=== PATIENT | female | born 1960 | race African-American/Black ===

== ENCOUNTER 2020-09-29 13:42 | Outpatient (CLI) | payer OTHER, SELFPAY ==
--- NOTE | ~2020-09-29 | MM_ITS ---
EXAMINATION: MM screening salena BI w miguelina HISTORY: Screening mammogram TECHNIQUE: Craniocaudal and mediolateral oblique 3-D tomosynthesis images were obtained and synthetic 2-D images were generated. CAD analysis was submitted and interpreted. COMPARISON: 09/25/2019, 08/21/2018, 08/09/2017 bilateral digital screening mammogram examinations BREAST PARENCHYMAL COMPOSITION: There are scattered areas of fibroglandular density. FINDINGS: There is no evidence of suspicious mass, calcification, or architectural distortion to sugg est malignancy in either breast. There has been no suspicious interval change. IMPRESSION: 1. No mammographic evidence of malignancy. 2. Recommend routine screening mammography in one year. BI-RADS Category 1: Negative Reviewed, dictated and finalized at location A. RVISOR ABATTOIR
== END 2020-09-29 13:43 | disposition home or self-care (01) ==
LOC: ANHIMG 13:45
PROVIDERS: PCP Internal Medicine; Visit Provider Internal Medicine
DX: Z12.31 Encounter for screening mammogram for malignant neoplasm of breast (principal)
CPT/HCPCS: 77063; 77067

== ENCOUNTER → 2021-06-23 09:59 | Outpatient (CLI) | payer OTHER, SELFPAY ==
--- NOTE | ~2021-06-23 | US_ITS ---
EXAMINATION: US pelvic complete w TV DATE: 06/23/2021 11:28 INDICATION: Pelvic pain. TECHNIQUE: Multiple transabdominal and transvaginal sonographic images of the pelvis were obtained. COMPARISON: None. FINDINGS: TRANSABDOMINAL ULTRASOUND: The uterus measures 4.4 x 2.2 x 3.2 cm. There is no free fluid in the pelvis. TRANSVAGINAL ULTRASOUND: The endometrial complex measures 4 mm in thickness. There are 1.5 cm and 1.0 cm hypoechoic intramural fibroids. The ovaries are not visualized. IMPRESSION: 1. Small uterine fibroids. 2. Ovaries not visualized. Reviewed, dictated and finalized at location A.
--- NOTE | ~2021-06-23 | US_ITS ---
EXAMINATION: US abdomen complete EXAM DATE: 06/23/2021 10:39 INDICATION: Unspecified abdominal pain. TECHNIQUE: Multiple grayscale and Doppler images of the complete abdomen were obtained (by a technolo gist who performed the scan) and subsequently reviewed. Comparison is made to prior examination from 10/02/2019. FINDINGS: Scanning was performed in area annotated umbilical area of pain both at rest and during Va lsalva. This demonstrated no abdominal wall defect and unremarkable subcutaneous fat. The abdominal aorta is normal in caliber. Visualized portion IVC is patent. The pancreatic head a nd body are normal in appearance. The pancreatic tail is not visualized. The liver has normal echogenicity and contour. There is a liver cyst measuring 1.5 cm. There is a 5 mm hyperechoic left liver lobe lesion unchanged, benign. Similar sized one in the right liver lobe me asuring 6 mm, also unchanged, benign. There is no evidence of intrahepatic biliary duct dilation. Po rtal venous flow was seen in the hepatopedal, normal direction and has normal Doppler waveform. Common bile duct measures 4 mm, which is normal. The gallbladder wall is normal in thickness, with ex pected amount of distention. No sonographic evidence of pericholecystic fluid. There is a 4 mm gall bladder polyp unchanged consistent with benign histology. No cholelithiasis. Technologist performing exam reports patient did not demonstrate sonographic Logan's sign. Please note that this sign is l ess reliable in patients who have received pain medication. Right kidney: There is normal contour and echogenicity. It measures 7.4 x 3.9 x 3.6 centimeters. T here are no focal renal lesions identified. There is no hydronephrosis. Left kidney: There is normal contour and echogenicity. It measures 8.4 x 4.7 x 3.8 centimeters. Th ere are no focal renal lesions identified. There is no hydronephrosis. The spleen measures 8.3 centimeters and is morphologically normal. IMPRESSION: 1. Two subcentimeter benign liver lesions unchanged. 2. Gallbladder polyp unchanged. Reviewed, dictated and finalized at location A.
== END ==
PROVIDERS: PCP Internal Medicine
DX: R10.9 Unspecified abdominal pain (principal); D25.9 Leiomyoma of uterus, unspecified; K82.4 Cholesterolosis of gallbladder
CPT/HCPCS: 76700; 76830; 76856

== ENCOUNTER 2021-11-15 14:55 | Outpatient (CLI) | payer OTHER, SELFPAY ==
--- NOTE | ~2021-11-15 | MM_ITS ---
EXAMINATION: MM screening salena BI w miguelina HISTORY: Screening TECHNIQUE: Craniocaudal and mediolateral oblique 3-D tomosynthesis images were obtained and synthetic 2-D images were generated. CAD analysis was submitted and interpreted. COMPARISON: Comparison to multiple prior studies sequentially, with oldest reviewed study dated 06/08. BREAST PARENCHYMAL COMPOSITION: The breasts are heterogeneously dense, which may obscure small masses . FINDINGS: There is no evidence of suspicious mass, calcification, or architectural distortion to sugg est malignancy in either breast. There has been no suspicious interval change. IMPRESSION: 1. No mammographic evidence of malignancy. 2. Recommend routine screening mammography in one year. BI-RADS Category 1: Negative Reviewed, dictated and finalized at location A. IVING MANAGER
== END 2021-11-15 14:56 | disposition home or self-care (01) ==
LOC: ANHIMG 14:57
PROVIDERS: PCP Internal Medicine; Visit Provider Internal Medicine
DX: Z12.31 Encounter for screening mammogram for malignant neoplasm of breast (principal)
CPT/HCPCS: 77063; 77067

== ENCOUNTER → 2022-05-18 09:17 | Outpatient (CLI) | payer OTHER, SELFPAY ==
--- NOTE | ~2022-05-18 | DEXA_ITS ---
Bone Density Report Name: OSMAN GREGORY Age: 62 Sex: Female Ethnicity: Black Date of : 1960 Indication: postmenopausal; screening for osteoporosis; asthma or emphysema; Referring Provider: VIRGIL, SAMUEL Moreno Study: Bone densitometry was performed. Exam Date: May 18, 2022 Accession number: [id number] Bone Density: Region BMD T-score Z-score Classification AP Spine (L1-L4) 1.053 0.1 0.7 Normal Femoral Neck (Left) 0.688 -1.4 -0.8 Osteopenia Total Hip (Left) 0.865 -0.6 -0.3 Normal Femoral Neck (Right) 0.686 -1.5 -0.8 Osteopenia Total Hip (Right) 0.841 -0.8 -0.4 Normal Total Hip Mean 0.853 -0.7 -0.4 Normal World Health Organization criteria for BMD impression classify patients as: Normal (T-score at or above -1.0), Osteopenia (T-score between -1.0 and -2.5), or Osteoporosis (T-score at or below -2.5). 10-year Fracture Risk(1): Major Osteoporotic Fracture 3.3% Hip Fracture 0.3% Reported Risk Factors: [place] (Black), Neck BMD=0.686, BMI=31.9 (1) FRAX(R) Version 3.08. Fracture probability calculated for an untreated patient. Fracture probability may be lower if the patient has received treatment. Clinical Information Provided by Patient: Has used the following medications: Vitamin D, MTV Has the following medical conditions: Asthma or Emphysema Patient maximum height was 62.5 Menopause Age: 52 No regular weight bearing exercise Does not regularly consume dairy products Drinks caffeinated beverages Onset of menses at age 11 Number of children 1 Impression: The patient has low bone mass, based on the Right Femoral Neck T-score. The patient has an estimated ten-year risk of hip fracture of 0.3% and an estimated ten-year risk of major fracture of 3.3%, based on the WHO FRAX algorithm. Discussion: BONE DENSITY IS LOW AT ONE OR MORE SKELETAL SITES. This patient's lowest T-score is low at one or more skeletal sites. It meets the World Health Organization's (WHO) criteria for ?low bone mass? (T-score between -1.0 and -2.5). The patient's 10-year risk of fracture as calculated by FRAX is less than the threshold where pharmacological therapy is recommended by the National Osteoporosis Foundation (NOF). However, all treatment decisions require clinical judgment and consideration of individual patient factors, including patient preferences, comorbidities, previous drug use, risk factors not captured in the FRAX model (e.g., frailty, falls, vitamin D deficiency, increased bone turnover, interval significant decline in bone density) and possible under or overestimation of fracture risk by FRAX. The patient should follow a healthful lifestyle (good nutrition with adequate calcium and vitamin D, and appropriate weight-bearing exercise). Follow-Up: Consider repeating this study in 2 to 3 years to heather
== END ==
PROVIDERS: PCP Internal Medicine; Visit Provider Internal Medicine
DX: Z78.0 Asymptomatic menopausal state (principal); M85.852 Other specified disorders of bone density and structure, left thigh; M85.851 Other specified disorders of bone density and structure, right thigh
CPT/HCPCS: 77080

== ENCOUNTER 2023-03-21 13:45 | Outpatient (CLI) | payer OTHER, SELFPAY ==
--- NOTE | ~2023-03-21 | MM_ITS ---
EXAMINATION: MM screening salena BI w miguelina HISTORY: Screening mammogram TECHNIQUE: Craniocaudal and mediolateral oblique 3-D tomosynthesis images were obtained and synthetic 2-D images were generated. CAD analysis was submitted and interpreted. COMPARISON: 11/15/2021, 09/29/2020, 09/25/2019 bilateral screening mammogram examinations BREAST PARENCHYMAL COMPOSITION: There are scattered areas of fibroglandular density. FINDINGS: There is no evidence of suspicious mass, calcification, or architectural distortion to sugg est malignancy in either breast. There has been no suspicious interval change. IMPRESSION: 1. No mammographic evidence of malignancy. 2. Recommend routine screening mammography in one year. BI-RADS Category 1: Negative Reviewed, dictated and finalized at location A.
== END 2023-03-21 13:46 | disposition home or self-care (01) ==
LOC: ANHIMG 13:49
PROVIDERS: PCP Internal Medicine; Visit Provider Internal Medicine
DX: Z12.31 Encounter for screening mammogram for malignant neoplasm of breast (principal)
CPT/HCPCS: 77063; 77067

== ENCOUNTER 2023-05-17 08:52 | Outpatient (CLI) | payer OTHER, SELFPAY ==
--- NOTE | 2023-05-17 | ECG_ITS ---
Measurements Intervals Walker Rate: 62 P: 52 CO: 161 QRS: 2 QRSD: 68 T: 15 QT: 380 QTc: 388 Interpretive Statements SINUS RHYTHM POSSIBLE LEFT ATRIAL ENLARGEMENT BORDERLINE T WAVE ABNORMALITY- INFERIOR LEADS BORDERLINE ECG NO PREVIOUS ECG AVAILABLE FOR COMPARISON Electronically Signed On 05-17-2023 9:18:42 CDT by Edenilson Cervantes D.O.
== END 2023-05-17 08:53 | disposition home or self-care (01) ==
PROVIDERS: PCP Internal Medicine; Visit Provider Otolaryngology
DX: I10 Essential (primary) hypertension (principal); Z01.818 Encounter for other preprocedural examination; R94.31 Abnormal electrocardiogram [ECG] [EKG]
CPT/HCPCS: 93005

== ENCOUNTER 2023-11-20 09:46 | Outpatient (CLI) | payer OTHER, SELFPAY ==
--- NOTE | ~2023-11-20 | US_ITS ---
EXAMINATION: US soft tissue head and neck DATE: 11/20/2023 10:24 INDICATION: Neck pain. Thyroid changes. Neck spasms. TECHNIQUE: Multiple ultrasound images of the thyroid were obtained. COMPARISON: None. FINDINGS: The right thyroid lobe measures 4.8 x 3.1 x 1.8 cm. The left thyroid lobe measures 3.8 x 2.4 x 1.1 c m. In the right thyroid lobe, there is 3.6 cm solid, hypoechoic, wider than tall nodule with ill-def ined margin without echogenic foci (TI-RADS TR4). In the left thyroid lobe, there is a 1.8 cm solid, isoechoic, wider than tall nodule with ill-defined margin without echogenic foci (TR3). There are no pathologically enlarged lymph nodes. IMPRESSION: 1. Thyroid nodules. Ultrasound-guided fine-needle aspiration of the 3.6 cm right thyroid nodule is re commended. Reviewed, dictated and finalized at location A. IMPRESSION: 1. Thyroid nodules. Ultrasound-guided fine-needle aspiration of the 3.6 cm righ t thyroid nodule is recommended.
== END 2023-11-20 09:47 ==
LOC: MICIMG 09:48
PROVIDERS: PCP Nurse Practitioner Adult Health; Visit Provider Nurse Practitioner Adult Health
DX: M54.2 Cervicalgia (principal); E04.2 Nontoxic multinodular goiter
CPT/HCPCS: 76536

== ENCOUNTER 2023-11-20 09:49 | Outpatient (CLI) | payer OTHER, SELFPAY ==
--- NOTE | ~2023-11-20 | US_ITS ---
Renal-Bladder ultrasound Clinical History: Chronic kidney disease Technique: Real-time sonographic imaging of the kidneys and urinary bladder was performed. Findings: The right kidney measures 8.1 cm in length and the left kidney measures 9.0 cm. There is no hydronephrosis or renal calculus identified. Renal cortical echogenicity is within normal limits. No renal mass lesion is identified. The urinary bladder is moderately distended at the time of this exam. No intraluminal echoes are iden tified. No abnormal wall thickening is seen. Impression: Unremarkable ultrasound of the kidneys and urinary bladder. Reviewed, dictated and finalized at location M. Impression: Unremarkable ultrasound of the kidneys and urinary bladder.
== END 2023-11-20 09:50 ==
LOC: MICIMG 09:51
PROVIDERS: PCP Specialist; Visit Provider Specialist
DX: N18.31 Chronic kidney disease, stage 3a (principal)
CPT/HCPCS: 76770

== ENCOUNTER 2023-12-17 12:37 | Outpatient (CLI) | payer OTHER, SELFPAY ==
--- NOTE | ~2023-12-17 | US_ITS ---
. EXAMINATION: US FNA w image guidance DATE: 12/17/2023 13:26 INDICATION: Nontoxic single thyroid nodule. TECHNIQUE: The procedure and its benefits and risks were discussed with the patient. Risks specifically discusse d included bleeding. The patient verbalized understanding of the risks and agreed to proceed. The nec k was prepped and draped in the usual sterile manner. 1% lidocaine was used for local anesthesia. 7 passes were made with a 25G needle into the lesion under ultrasound guidance. There were no immedia te complications. FINDINGS: Grayscale ultrasound images demonstrate needles advanced into a 3.6 cm right thyroid nodule for biops y. IMPRESSION: 1. Ultrasound-guided fine needle aspiration of a right thyroid nodule. Reviewed, dictated and finalized at location A.
== END 2023-12-17 12:38 | disposition home or self-care (01) ==
PROVIDERS: PCP Internal Medicine; Visit Provider Internal Medicine
DX: E04.1 Nontoxic single thyroid nodule (principal)
CPT/HCPCS: 10005; 88172; 88173; 88305

== ENCOUNTER 2024-07-18 11:07 | Outpatient (CLI) | payer OTHER, SELFPAY ==
--- NOTE | ~2024-07-18 | CT_ITS ---
EXAMINATION: CT sinus wo con DATE: 07/18/2024 11:21 INDICATION: Chronic sinusitis. TECHNIQUE: Computed tomography (CT) of the paranasal sinuses was performed without intravenous contra st. Iterative reconstruction technique was employed. The dose-length product was 278.24 mGy-cm. COMPARISON: CT 08/23/2015 FINDINGS: The frontal sinuses are clear. There is mild mucosal thickening in left ethmoid sinus. The sphenoid and right maxillary sinuses are clear. There is mild mucosal thickening in left maxillary si nus. The nasal septum is at the midline. The ostiomeatal units are patent. IMPRESSION: 1. Mild mucosal thickening in the paranasal sinuses. Reviewed, dictated and finalized at location A. IVING SUPERVISOR
== END 2024-07-18 11:08 | disposition home or self-care (01) ==
LOC: MICIMG 11:08
PROVIDERS: PCP Internal Medicine; Visit Provider Otolaryngology
DX: J32.9 Chronic sinusitis, unspecified (principal)
CPT/HCPCS: 70486

== ENCOUNTER 2024-08-09 10:58 | Outpatient (CLI) | payer OTHER, SELFPAY ==
--- NOTE | ~2024-08-09 | MM_ITS ---
EXAMINATION: MM screening salena BI w miguelina HISTORY: Screening TECHNIQUE: Craniocaudal and mediolateral oblique 3-D tomosynthesis images were obtained and synthetic 2-D images were generated. CAD analysis was submitted and interpreted. COMPARISON: Comparison to multiple prior studies sequentially, with oldest reviewed study dated 07/13. BREAST PARENCHYMAL COMPOSITION: Not dense: There are scattered areas of fibroglandular density. FINDINGS: There is no evidence of suspicious mass, calcification, or architectural distortion to sugg est malignancy in either breast. There has been no suspicious interval change. IMPRESSION: 1. No mammographic evidence of malignancy. 2. Recommend routine screening mammography in one year. BI-RADS Category 1: Negative Reviewed, dictated and finalized at location B. ER HELPER
== END 2024-08-09 10:59 | disposition home or self-care (01) ==
LOC: MICIMG 11:01
PROVIDERS: PCP Internal Medicine; Visit Provider Internal Medicine
DX: Z12.31 Encounter for screening mammogram for malignant neoplasm of breast (principal)
CPT/HCPCS: 77063; 77067

== ENCOUNTER 2025-03-15 08:35 | Emergency (ER) | payer OTHER, SELFPAY ==
[2025-03-15 08:44] VITALS: BP 157/71; PULSE 96; RESP 16; TEMP 36.9; O2SAT 100
--- NOTE | 2025-03-15 08:50 | ED.SKABFB ---
HPI - Skin/Abscess/Foreign Bdy General Chief complaint: Skin/Abscess/Foreign Body Stated complaint: rash around eyes Time Seen by Provider: 03/15/25 08:50 Source: patient Mode of arrival: ambulatory Limitations: no limitations History of Present Illness HPI narrative: 64-year-old female reports with complaint of itchy rash for the past several days. Becoming progressively worse. Started to right upper eyelid after pulling weeds. Has spread to left side of forehead, left breast, bilateral forearms. Using bxis-aog-glutyhn hydrocortisone cream. All Systems reviewed and negative except as noted above. Related Data Home Medications ?Medication ?Instructions ?Recorded ?Confirmed ?Last Taken ?Type atorvastatin 40 mg tablet mg 03/15/25 Unknown History dapagliflozin propanediol 10 mg mg 03/15/25 Unknown History tablet (Farxiga) ergocalciferol (vitamin D2) 1,250 03/15/25 Unknown History mcg (50,000 unit) capsule losartan 50 mg tablet mg 03/15/25 Unknown History metoprolol succinate 50 mg mg PO 03/15/25 Unknown History tablet,extended release 24 hr Allergies Allergy/AdvReac Type Severity Reaction Status Date / Time Penicillins Allergy Severe NAUSEA AND Verified 03/15/25 08:59 VOMITING esomeprazole Allergy Intermediate MOUTH AND Verified 03/15/25 08:59 THROAT SWELLING latex Allergy Mild SENSITIVE Verified 03/15/25 08:59 SERTRALINE HCL Allergy Severe CONFUSION Uncoded 03/15/25 08:59 Dust Allergy Intermediate CHEST Uncoded 03/15/25 08:59 CONSTRICTION AEROSELS Allergy Mild irritation Uncoded 03/15/25 08:59 CIGARETTE SMOKE Allergy Mild irritation Uncoded 03/15/25 08:59 CODEINE PHOS Allergy Mild CONFUSION Uncoded 03/15/25 08:59 BACITRACIN OINT Allergy Unknown Rash Uncoded 03/15/25 08:59 Review of Systems Review of Systems: CONSTITUTIONAL: Denies fever, chills, or sweats. EYES: Denies visual changes, redness, or discharge. ENT: Denies rhinorrhea, congestion, sore throat, or otalgia. CARDIOVASCULAR: Denies chest pain, palpitations, or edema. RESPIRATORY: Denies cough or dyspnea. GASTROINTESTINAL: Denies abdominal pain, nausea, vomiting, or diarrhea. GENITOURINARY: Denies dysuria or hematuria. SKIN: reports rash and itching. MUSCULOSKELETAL: Denies back pain, joint pain, or myalgia. NEUROLOGIC: Denies headache, numbness, or weakness. PSYCHIATRIC: Denies anxiety or depression. All other systems reviewed are negative, except as documented in HPI. PMFSH Comments At time of signature, agree with nursing past medical, surgical, social and family history. There is no relevant family history pertinent to the presenting complaint. Exam Narrative: GENERAL: This is a well-nourished, well-developed patient, in no apparent distress. HEAD: normocephalic, atraumatic. EYES: PERRL. Sclera clear/white. Vision is grossly intact. EARS: External ears normal NOSE: External nose normal NECK: Neck supple, non-tender without lymphadenopathy, masses or thyromegaly. CARDIOVASCULAR: Regular rate and rhythm without murmurs, gallops, or rubs. RESPIRATORY: Clear to auscultation. Breath sounds equal bilaterally. No wheezes, rales, or rhonchi. SKIN: warm, Dry, intact, good texture and turgor. erythematous vesicular rash to right upper eyelid, left side forehead, right forearm and left breast NEURO: awake, alert, and oriented to person, place and time. There were no obvious focal neurologic abnormalities. EXTREMITIES: No joint tenderness, effusion, or edema noted. Course Course Level of Care: Express Care Visit Vital Signs Vital signs: Vital Signs Temperature 36.9 C 03/15/25 08:44 Pulse Rate 96 03/15/25 08:44 Respiratory Rate 16 03/15/25 08:44 Blood Pressure 157/71 H 03/15/25 08:44 Pulse Oximetry 100 03/15/25 08:44 Oxygen Delivery Room Air 03/15/25 08:44 Temperature 36.9 C 03/15/25 08:44 Pulse Rate 96 03/15/25 08:44 Respiratory Rate 16 03/15/25 08:44 Blood Pressure 157/71 H 03/15/25 08:44 Pulse Oximetry 100 03/15/25 08:44 Oxygen Delivery Room Air 03/15/25 08:44 reviewed MDM - Skin/Abscess/Foreign Bdy MDM Narrative Medical decision making narrative: exam findings and recent pulling weeds concerning for poison tamiko exposure. Will treat with oral prednisone, triamcinolone. Recommended daily antihistamine. Patient is well-appearing, nontoxic. Discharge Plan Discharge Clinical Impression: Dermatitis due to plants, including poison tamiko, sumac, and oak Patient Disposition: Home Condition: Stable Instructions: Poison Tamiko (ED) Additional Instructions: take prednisone as prescribed. Apply triamcinolone sparingly to affected areas, avoid applying to face. Take a daily antihistamine such as Claritin or Zyrtec. Follow-up with your primary care physician as needed. Patient Language: Spanish Prescriptions: New prednisone 10 mg tablet See Rx Instructions .ROUTE .COMPLEX Qty: 42 0RF Rx Instructions: Take 6 tablets for 2 days Take 5 tablets for 2 days Take 4 tablets for 2 days Take 3 tablets for 2 days Take 2 tablets for 2 days Take 1 tablet for 2 days triamcinolone acetonide 0.1 % cream 1 applic topical BID Qty: 30 0RF No Action losartan 50 mg tablet atorvastatin 40 mg tablet metoprolol succinate 50 mg tablet extended release 24 hr PO ergocalciferol (vitamin D2) 1,250 mcg (50,000 unit) capsule dapagliflozin propanediol [Farxiga] 10 mg tablet Follow-up/Referrals: Lobito,Joel Moreno MD [Primary Care Provider] - Time of Disposition: 09:02
== END 2025-03-15 09:12 | disposition home or self-care (01) ==
PROVIDERS: Emergency Provider Nurse Practitioner Family; PCP Internal Medicine
DX: L23.7 Allergic contact dermatitis due to plants, except food (principal); I10 Essential (primary) hypertension; E78.00 Pure hypercholesterolemia, unspecified; E11.9 Type 2 diabetes mellitus without complications
CPT/HCPCS: 99213; G0463

== ENCOUNTER 2025-03-31 08:16 | Emergency (ER) | payer OTHER, SELFPAY ==
--- NOTE | 2025-03-31 08:30 | ED_ITS ---
HPI - Skin/Abscess/Foreign Bdy General Chief complaint: Skin/Abscess/Foreign Body Stated complaint: Rash Spreading Source: patient Mode of arrival: ambulatory Limitations: no limitations History of Present Illness HPI narrative: 65 y/o female presented for c/o spreading poison tamiko rash' to left abdomen. Pt was seen 03/15 in clinic for the same, plus additional rash lesions to the face and arms which she says have cleared. Pt completed 12 day course of prednisone 3 days ago. Pt still with bumps and itching on abdomen and under breasts, which she said feels like it is spreading to the left back and right abdomen. Denies rash in these areas. Elevated bp on arrival, has not yet taken meds. Denies chest pain, palpitations, leg swelling. Endorses a headache this morning for which she took ibuprofen. Related Data Home Medications ?Medication ?Instructions ?Recorded ?Confirmed ?Last Taken ?Type atorvastatin 40 mg tablet mg 03/15/25 Unknown History dapagliflozin propanediol 10 mg mg 03/15/25 Unknown History tablet (Farxiga) ergocalciferol (vitamin D2) 1,250 03/15/25 Unknown History mcg (50,000 unit) capsule losartan 50 mg tablet mg 03/15/25 Unknown History metoprolol succinate 50 mg mg PO 03/15/25 Unknown History tablet,extended release 24 hr Allergies Allergy/AdvReac Type Severity Reaction Status Date / Time Penicillins Allergy Severe NAUSEA AND Verified 03/15/25 08:59 VOMITING esomeprazole Allergy Intermediate MOUTH AND Verified 03/15/25 08:59 THROAT SWELLING latex Allergy Mild SENSITIVE Verified 03/15/25 08:59 SERTRALINE HCL Allergy Severe CONFUSION Uncoded 03/15/25 08:59 Dust Allergy Intermediate CHEST Uncoded 03/15/25 08:59 CONSTRICTION AEROSELS Allergy Mild irritation Uncoded 03/15/25 08:59 CIGARETTE SMOKE Allergy Mild irritation Uncoded 03/15/25 08:59 CODEINE PHOS Allergy Mild CONFUSION Uncoded 03/15/25 08:59 BACITRACIN OINT Allergy Unknown Rash Uncoded 03/15/25 08:59 Review of Systems Review of Systems: CONSTITUTIONAL: Denies body aches, fever, chills, or sweats. EYES: Denies visual changes, redness, or discharge. ENT: Denies rhinorrhea, congestion CARDIOVASCULAR: Denies chest pain, palpitations, or edema. RESPIRATORY: Denies cough or dyspnea. GASTROINTESTINAL: Denies abdominal pain, nausea, vomiting, or diarrhea. SKIN: reports rash to left abdomen MUSCULOSKELETAL: Denies back pain, joint pain, or myalgia. NEUROLOGIC: Denies headache, numbness, tingling, or weakness. [facility] Past Medical History Medical History (Updated 03/31/25 @ 08:57 by Juana Christy APRN) HTN (hypertension) Comments At time of signature, I have reviewed and agree with nursing past medical, surgical, social and family history unless otherwise noted. Please see nursing chart for further information. There is no relevant family history pertinent to the presenting complaint Exam Narrative: GENERAL: Well-appearing HEAD: Normocephalic, atraumatic. EYES: conjunctivae clear, and EOMI. ENT: Mucous membranes moist. Oropharynx without edema, erythema or lesions. NECK: Supple. No lymphadenopathy CHEST: Clear to auscultation. HEART: Regular rate and rhythm. SKIN: Warm, dry. Left mid abdomen with small area of pinpoint vesicles on erythematous base, nontender no drainage or purulence. Nontender dermatome. NEURO: Alert and oriented x3. Course Course Emergency Course: Patient is aware of diagnosis, understands and agrees to treatment plan. Anticipatory guidance given. Patient agrees to follow-up as directed and is aware of reasons to seek care at the emergency department. Portions of this record may have been created with voice recognition software Level of Care: Express Care Visit Vital Signs Vital signs: Reviewed MDM - Skin/Abscess/Foreign Bdy MDM Narrative Medical decision making narrative: Discussed physical exam findings, Left mid abdomen with small area of vesicles on erythematous base, nontender to site or dermatome. Shared decision making Pt will resume Home supply of Zyrtec and Pepcid, as she just completed a 12 day taper of steroids 3 days ago. Advised supportive measures and signs/symptoms to go to the ER. Pt is appropriate for outpt treatment and f/u. Pt is aware of elevated bp, and planned to recheck prior to dc. Pt declined rechecking of BP. Instructed patient to go to nearest ER immediately for any worsening symptoms Differential Diagnosis Differential diagnosis: Likely abscess of skin or subcutaneous tissue, viral exanthem, dermatophytosis, urticaria, herpes zoster, cellulitis, eczema, insect bites, impetigo and contact dermatitis Discharge Plan Discharge Clinical Impression: Contact dermatitis Patient Disposition: Home Condition: Stable Instructions: Antibiotic Form, Poison Tamiko (ED) Additional Instructions: Take Zyrtec daily and Pepcid 40mg (home supply). Benadryl cream, Tamiko Dry or calamine as needed for itching Cool compresses to the sites of itching, avoid hot water and hot temperatures. Avoid scratching to reduce the risk of infection Follow up with your primary care provider as needed in 1 week Go to the ER for worsening symptoms or concerns (lip, tongue, throat swe lling/itching, trouble breathing etc) Patient Language: German Prescriptions: No Action losartan 50 mg tablet atorvastatin 40 mg tablet metoprolol succinate 50 mg tablet extended release 24 hr PO ergocalciferol (vitamin D2) 1,250 mcg (50,000 unit) capsule dapagliflozin propanediol [Farxiga] 10 mg tablet prednisone 10 mg tablet See Rx Instructions .ROUTE .COMPLEX Qty: 42 0RF Rx Instructions: Take 6 tablets for 2 days Take 5 tablets for 2 days Take 4 tablets for 2 days Take 3 tablets for 2 days Take 2 tablets for 2 days Take 1 tablet for 2 days triamcinolone acetonide 0.1 % cream 1 applic topical BID Qty: 30 0RF Follow-up/Referrals: Lobito,Joel Moreno MD [Primary Care Provider] - Time of Disposition: 08:51
[2025-03-31 08:32] VITALS: BP 172/82; PULSE 74; RESP 14; TEMP 36.9; O2SAT 100
--- NOTE | 2025-03-31 08:55 | PC.NURSE ---
pt noted to have elevated blood pressure, state has not been taking medications as rx states. offered to recheck blood pressure prior to discharge, pt declined.
== END 2025-03-31 08:51 | disposition home or self-care (01) ==
PROVIDERS: Emergency Provider Nurse Practitioner Family; PCP Internal Medicine
DX: L25.9 Unspecified contact dermatitis, unspecified cause (principal); I10 Essential (primary) hypertension
CPT/HCPCS: 99211; G0463

== ENCOUNTER 2025-05-05 09:56 | Outpatient (CLI) | payer OTHER, SELFPAY ==
--- NOTE | ~2025-05-05 | DEXA_ITS ---
Bone Density Report Name: OSMAN BURKETT Age: 65 Sex: Female Ethnicity: Black Date of : 1960 Indication: postmenopausal; screening for osteoporosis; asthma or emphysema; Referring Provider: VIRGIL, SAMUEL Moreno Study: Bone densitometry was performed. Exam Date: May 05, 2025 Accession number: [id number] Bone Density: Region BMD T-score Z-score Classification AP Spine(L1-L4) 1.067 0.2 1.0 Normal Femoral Neck (Left) 0.694 -1.4 -0.6 Osteopenia Total Hip (Left) 0.840 -0.8 -0.3 Normal Femoral Neck (Right) 0.674 -1.6 -0.8 Osteopenia Total Hip (Right) 0.824 -1.0 -0.4 Normal Total Hip Mean 0.832 -0.9 -0.4 Normal World Health Organization criteria for BMD impression classify patients as: Normal (T-score at or above -1.0), Osteopenia (T-score between -1.0 and -2.5), or Osteoporosis (T-score at or below -2.5). 10-year Fracture Risk(1): Major Osteoporotic Fracture 3.7% Hip Fracture 0.3% Reported Risk Factors: [place] (Black), Neck BMD=0.674, BMI=31.0 (1) FRAX(R) Version 3.08. Fracture probability calculated for an untreated patient. Fracture probability may be lower if the patient has received treatment. Previous Exams: -- Region Exam Age BMD T-score BMD Change BMD Change Date g/cm2 vs Baseline vs Previous -- AP Spine (L1-L4) 05/05/2025 65 1.067 0.2 1.3%# 1.3%# 05/18/2022 62 1.053 0.1 Total Hip(Left) 05/05/2025 65 0.840 -0.8 -2.8%# -2.8%# 05/18/2022 62 0.865 -0.6 Total Hip(Right) 05/05/2025 65 0.824 -1.0 -2.0%# -2.0%# 05/18/2022 62 0.841 -0.8 -- *Denotes significance at 95% confidence level, LSC for AP Spine = 0.022 g/cm2, LSC for Total Hip = 0.027 g/cm2 # Denotes dissimilar scan types or analysis methods Clinical Information Provided by Patient: Has used the following medications: Calcium Has the following medical conditions: Asthma or Emphysema Patient maximum height was 62.5 Menopause Age: 52 No regular weight bearing exercise Does not regularly consume dairy products Drinks caffeinated beverages Onset of menses at age 11 Number of children 1 Impression: The patient has low bone mass, based on the Right Femoral Neck T-score. The patient has an estimated ten-year risk of hip fracture of 0.3% and an estimated ten-year risk of major fracture of 3.7%, based on the WHO FRAX algorithm. Unable to evaluate interval change due to the use of different scan modes. Discussion: BONE DENSITY IS LOW AT ONE OR MORE SKELETAL SITES. This patient's lowest T-score is low at one or more skeletal sites. It meets the World Health Organization's (WHO) criteria for ?low bone mass? (T-score between -1.0 and -2.5). The patient's 10-year risk of fracture as calculated by FRAX is less than the threshold where pharmacological therapy is recommended by the National Osteoporosis Foundation (NOF). However, all treatment decisions require clinical judgment and consideration of individual patient factors, including patient preferences, comorbidities, previous drug use, risk factors not captured in the FRAX model (e.g., frailty, falls, vitamin D deficiency, increased bone turnover, interval significant decline in bone density) and possible under or overestimation of fracture risk by FRAX. The patient should follow a healthful lifestyle (good nutrition with adequate calcium and vitamin D, and appropriate weight-bearing exercise). Follow-Up: Consider repeating this study in 2 to 3 years to reassess this patient's status, or sooner if there is some new clinical indication. Reported by: DONNA on 05/05/2025 1:47:00 PM. Reviewed, dictated and finalized at location A.
== END 2025-05-05 09:57 | disposition home or self-care (01) ==
PROVIDERS: PCP Internal Medicine; Visit Provider Internal Medicine
DX: Z78.0 Asymptomatic menopausal state (principal); M85.851 Other specified disorders of bone density and structure, right thigh; M85.852 Other specified disorders of bone density and structure, left thigh
CPT/HCPCS: 77080

== ENCOUNTER 2025-06-16 09:39 | Outpatient (CLI) | payer OTHER, SELFPAY ==
--- OUTSIDE RECORDS SUMMARY | 2024-06-20 07:15 | XMS_ITS ---
Author Organization [facility] Office Address [address] [facility], [facility] [address] [facility] [address] [place] [address] Care Team Providers Care Sand Wheeler Name Role Phone Tomy Grimes Unavailable [phone] Medications Medication SIG (Take, Route, Frequency, Duration) Notes Start Date End Date Status Calcitriol 0.25 MCG 1 capsule Orally maria c ry other day; Duration: 90 days 12/07/2023 09/02/2024 Active Ergocalciferol 1.25 MG (54052 UT) 1 capsule Orally Once a week; Duration: 90 day(s) 12/07/2023 09/01/2024 Active Losartan Potassium 50 MG 1 tablet Orally Once a day; Duration: 90 12/07/2023 Active Social History Sex Assigned At : Social History Observation Description Sex Assigned At Female Encounters Encounter Location Date Provider Diagnosis [place] [facility] [address] [facility] [address] [place] [address] 06/20/2024 Tomy Grimes Chronic kidney disease, stage 3a N18.31 ; Chronic kidney disease, stage 2 (mild) N18.2 ; Anxiety disorder, unspecified F41.9 ; Chronic fatigue, unspecified R53.82 ; Essential (primary) hypertension I10 and Hyperlipidemia, unspecified E78.5 Assessments Encounter Date Diagnosis (ICD Code) Assessment Notes Treatment Notes Treatment Clinical Notes Section Notes 06/20/2024 Chronic kidney disease, stage 3a (ICD-10 - N18.31) 06/20/2024 Chronic kidney disease, stage 2 (mild) (ICD-10 - N18.2) 06/20/2024 Anxiety disorder, unspecified (ICD-10 - F41.9) 06/20/2024 Chronic fatigue, unspecified (ICD-10 - R53.82) 06/20/2024 Essential (primary) hypertension (ICD-10 - I10) 06/20/2024 Hyperlipidemia, unspecified (ICD-10 - E78.5) Plan Of Treatment No Information Progress Notes * OSMAN SMITHDOB: (65 yo F)Acc No.[id number]:06/20/2024 Patient: OSMAN BENJAMIN Provider: Norris CONTRERAS MD, F.A.C.P, F.A.S.N. :1960 A ge:64 Y S ex:Female Date:06/20/2024 Address:[address] [place], [place] [id number] Subjective: * Chief Complaints: Objective: Assessment: * Assessment: 1. C hronic kidney disease, stage 3a - N18.31 (Primary) 2 . C hronic kidney disease, stage 2 (mild) - N18.2 3 . A nxiety disorder, unspecified - F41.9 4 . C hronic fatigue, unspecified - R53.82 5 . E ssential (primary) hypertension - I10 6 . H yperlipidemia, unspecified - E78.5 Plan: * Billing Information: * Visit Code: 99035 Office Visit, Est Pt., Level 4. * Procedure Codes: * Electronic signature of Fletcher Grimes MD on 06/16/2025 at 10:13 AM CDT Sign off status: Pending * Provider: Norris CONTRERAS MD, F.A.C.P, F.A.S.N. Date: 1 Generated for Printing/Faxing/eTransmitting on: 10:13 AM CDT
--- OUTSIDE RECORDS SUMMARY | 2024-10-10 10:00 | XMS_ITS ---
Author Organization [facility] Office Address [address] [place] [address] Care Team Providers Care Group Exercise Instructor Name Role Phone Cornelio Tomy Unavailable [phone] Medications Medication SIG (Take, Route, Frequency, Duration) Notes Start Date End Date Status Losartan Potassium 50 MG 1 tablet Orally Once a day; Duration: 90 12/07/2023 Active Social History Sex Assigned At : Social History Observation Description Sex Assigned At Female Problems Problem Type SNOMED Code ICD Code Onset Dates Problem Status W/U Status Risk Notes Problem Diabetic renal disease (082548745) Type 2 diabetes mellitus with diabetic chronic kidney disease (E11.22) Active confirmed Problem Renal osteodystrophy (35060606) Renal osteodystrophy (N25.0) Active confirmed Problem Secondary hyperparathyroidism of renal origin (75727507) Secondary hyperparathyroidism of renal origin (N25.81) Active confirmed Encounters Encounter Location Date Provider Diagnosis [place] [facility] [address] [facility] [address] [place] [address] 10/10/2024 Tomy Grimes Chronic kidney disea se, stage 3a N18.31 ; Anxiety disorder, unspecified F41.9 ; Chronic fatigue, unspecified R53.82 ; Essential (primary) hypertension I10 ; Hyperlipidemia, unspecified E78.5 ; Chronic kidney disease, stage 2 (mild) N18.2 ; Type 2 diabetes mellitus with diabetic chronic kidney disease E11.22 ; Renal osteodystrophy N25.0 ; Secondary hyperparathyroidism of renal origin N25.81 and Proteinuria, unspecified R80.9 Assessments Encounter Date Diagnosis (ICD Code) Assessment Notes Treatment Notes Treatment Clinical Notes Section Notes 10/10/2024 Chronic kidney disea se, stage 3a (ICD-10 - N18.31) 10/10/2024 Anxiety disorder, unspecified (ICD-10 - F41.9) 10/10/2024 Chronic fatigue, unspecified (ICD-10 - R53.82) 10/10/2024 Essential (primary) hypertension (ICD-10 - I10) 10/10/2024 Hyperlipidemia, unspecified (ICD-10 - E78.5) 10/10/2024 Chronic kidney disea se, stage 2 (mild) (ICD-10 - N18.2) 10/10/2024 Type 2 diabetes mellitus with diabetic chronic kidney disease (ICD-10 - E11.22) 10/10/2024 Renal osteodystrophy (ICD-10 - N25.0) 10/10/2024 Secondary hyperparathyroidism of renal origin (ICD-10 - N25.81) 10/10/2024 Proteinuria, unspecified (ICD-10 - R80.9) Plan Of Treatment No Information Progress Notes * COLTGAYDAYDAYOSMAN CordovaDOB: (65 yo F)Acc No.[id number]:10/10/2024 Progress Notes Patient: Chaparro ALMEIDA OSMAN Provider: Norris CONTRERAS MD, F.A.C.P, F.A.S.N. :1960 A ge:64 Y S ex:Female Date:10/10/2024 Address:[address] [place] [address] Subjective: * Chief Complaints: * * Medical History: * Medications: T aking Losartan Potassium 50 MG Tablet 1 tablet Orally Once a day Objective: * Vitals: Assessment: * Assessment: 1. C hronic kidney disease, stage 3a - N18.31 (Primary) 2 . A nxiety disorder, unspecified - F41.9 3 . C hronic fatigue, unspecified - R53.82 ?4. E ssential (primary) hypertension - I10 5 . H yperlipidemia, unspecified - E78.5 6 . C hronic kidney disease, stage 2 (mild) - N18.2 7 . T ype 2 diabetes mellitus with diabetic chronic kidney disease - E11.22 8 .?Renal osteodystrophy - N25.0 9 . S econdary hyperparathyroidism of renal origin - N25.81 1 0. P roteinuria, unspecified - R80.9 Plan: * Treatment: * Billing Information: * Visit Code: 73235 Office Visit, Est Pt., Level 4. * Procedure Codes: * Electronic signature of Fletcher Grimes MD on 06/16/2025 at 10:13 AM CDT Sign off status: Pending * Provider: Norris CONTRERAS MD, F.A.C.P, F.A.S.N. Date: 0 10/10/2024 Generated for Printing/Faxing/eTransmitting on: 10:13 AM CDT
--- OUTSIDE RECORDS SUMMARY | 2025-01-16 08:45 | XMS_ITS ---
Author Organization [facility] Office Address [address] [place] [address] Care Team Providers Care Cognos Analyst Name Role Phone Tomy Grimes Unavailable [phone] Social History Sex Assigned At : Social History Observation Description Sex Assigned At Female Encounters Encounter Location Date Provider Diagnosis [place] [facility] [address] [facility] [address] [place] [address] 01/16/2025 Tomy Grimes Chronic kidney disea se, stage 3a N18.31 ; Anxiety disorder, unspecified F41.9 ; Chronic fatigue, unspecified R53.82 ; Essential (primary) hypertension I10 ; Hyperlipidemia, unspecified E78.5 ; Type 2 diabetes mellitus with diabetic chronic kidney disease E11.22 ; Renal osteodystrophy N25.0 and Secondary hyperparathyroidism of renal origin N25.81 Assessments Encounter Date Diagnosis (ICD Code) Assessment Notes Treatment Notes Treatment Clinical Notes Section Notes 01/16/2025 Chronic kidney disea se, stage 3a (ICD-10 - N18.31) 01/16/2025 Anxiety disorder, unspecified (ICD-10 - F41.9) 01/16/2025 Chronic fatigue, unspecified (ICD-10 - R53.82) 01/16/2025 Essential (primary) hypertension (ICD-10 - I10) 01/16/2025 Hyperlipidemia, unspecified (ICD-10 - E78.5) 01/16/2025 Type 2 diabetes mellitus with diabetic chronic kidney disease (ICD-10 - E11.22) 01/16/2025 Renal osteodystrophy (ICD-10 - N25.0) 01/16/2025 Secondary hyperparathyroidism of renal origin (ICD-10 - N25.81) Plan Of Treatment No Information Progress Notes * OSMAN SMITHDOB: (65 yo F)Acc No.[id number]:01/16/2025 Progress Notes Patient: OSMAN BENJAMIN Provider: Norris CONTRERAS MD, Re.Anabel.Yair.P, F.A.S.N. :1960 A ge:64 Y S ex:Female Date:01/16/2025 Address:[address] [place] [address] Subjective: * Chief Complaints: * * Medical History: Objective: * Vitals: Assessment: * Assessment: 1. C hronic kidney disease, stage 3a - N18.31 (Primary) 2 . A nxiety disorder, unspecified - F41.9 3 . C hronic fatigue, unspecified - R53.82 ?4. E ssential (primary) hypertension - I10 5 . H yperlipidemia, unspecified - E78.5 6 . T ype 2 diabetes mellitus with diabetic chronic kidney disease - E11.22 7 . R enal osteodystrophy - N25.0 8 . S econdary hyperparathyroidism of renal origin - N25.81 Plan: * Treatment: * Billing Information: * Visit Code: 10688 Office Visit, Est Pt., Level 4. * Procedure Codes: * Electronic signature of Fletcher Grimes MD on 06/16/2025 at 10:13 AM CDT Sign off status: Pending * Provider: Norris CONTRERAS MD, Re.Zeb.P, F.A.S.N. Date: 0 01/16/2025 Generated for Printing/Faxing/eTransmitting on: 1 10:13 AM CDT
--- OUTSIDE RECORDS SUMMARY | 2025-03-25 14:00 | XMS_ITS ---
Author Organization [facility] Address [address] [facility] [address] [facility] [address] [place] [address] Care Team Providers Care Automatic Spooler Operator Name Role Phone Tomy Grimes Unavailable [phone] Social History Sex Assigned At : Social History Observation Description Sex Assigned At Female Encounters Encounter Location Date Provider Diagnosis [place] [facility] [address] [facility] [address] [place] [address] 03/25/2025 Tomy Grimes Plan Of Treatment No Information Progress Notes * OSMAN SMITHDOB: (65 yo F)Acc No.[id number]:03/25/2025 Progress Notes Patient: SUNITA BENJAMINETTE Provider: Norris CONTRERAS MD, Re.Anabel.Yair.P, F.A.S.N. :1960 A ge:65 Y S ex:Female Date:03/25/2025 Address:[address] [place], [place] [id number] Subjective: * Chief Complaints: * * Medical History: Objective: * Vitals: Assessment: Plan: * Treatment: * Billing Information: * Visit Code: * Procedure Codes: * Electronic signature of Fletcher Grimes MD on 06/16/2025 at 10:13 AM CDT Sign off status: Pending * Provider: Norris CONTRERAS MD, Re.Anabel.C.P, F.A.S.N. Date: 0 03/25/2025 Generated for Printing/Faxing/eTransmitting on: 1 10:13 AM CDT
--- OUTSIDE RECORDS SUMMARY | 2025-04-15 12:15 | XMS_ITS ---
Author Organization [facility] Address [address] [place] [address] Care Team Providers Care Billing And Insurance Coordinator Name Role Phone Tomy Grimes Unavailable [phone] Social History Sex Assigned At : Social History Observation Description Sex Assigned At Female Encounters Encounter Location Date Provider Diagnosis [place] [facility] [address] [facility] [address] [place] [address] 04/15/2025 Tomy Grimes Chronic kidney disea se, stage [...] Treatment Notes Treatment Clinical Notes Section Notes 04/15/2025 Chronic kidney disea se, stage 3a (ICD-10 - N18.31) 04/15/2025 Anxiety disorder, unspecified (ICD-10 - F41.9) 04/15/2025 Chronic fatigue, unspecified (ICD-10 - R53.82) 04/15/2025 Essential (primary) hypertension (ICD-10 - I10) 04/15/2025 Hyperlipidemia, unspecified (ICD-10 - E78.5) 04/15/2025 Type 2 diabetes mellitus with diabetic chronic kidney disease (ICD-10 - E11.22) 04/15/2025 Renal osteodystrophy (ICD-10 - N25.0) 04/15/2025 Secondary hyperparathyroidism of renal origin (ICD-10 - N25.81) Plan Of Treatment No Information Progress Notes * OSMAN SMITHDOB: (65 yo F)Acc No.[id number]:04/15/2025 Patient: OSMAN BENJAMIN Provider: Norris CONTRERAS MD, F.Anabel.C.P, F.A.S.N. :1960 A ge:65 Y S ex:Female Date:04/15/2025 Address:[address] [place] [address] Subjective: * Chief Complaints: Objective: Assessment: * [...] of renal origin - N25.81 Plan: * Billing Information: * Visit Code: 53154 Office Visit, Est Pt., Level 5. * Procedure Codes: * Electronic signature of Fletcher Grimes MD on 06/16/2025 at 10:13 AM CDT Sign off status: Pending * Provider: Norris CONTRERAS MD, F.Anabel.C.P, F.A.S.N. Date: 0 04/15/2025 Generated for Printing/Faxing/eTransmitting on: 1 10:13 AM CDT
--- OUTSIDE RECORDS SUMMARY | 2025-06-16 10:13 | XMS_ITS | Clinical Summary ---
Author Organization [facility] Address [address] [place] [phone] Phone Care Team Providers Care Flight Operations Coordinator Name Role Phone [facility], External Provider Primary Care Provider U navailable Allergies Active Allergy Reactions Criticality Noted Date Comments Latex Rash Low 09/29/2010 Medications Cholecalciferol, Vitamin D3, (VITAMIN D) 1,000 unit Oral Tab Take by mouth daily. 09/29/2010 Active multivitamin (DAILY-ROSSY) Oral tablet Take 1 Tab by mouth daily. Active NORETHINDRONE, [id number], (MICRONOR, 28, ORAL) Take by mouth. Active Social History Tobacco Use Types Packs/Day Years Used Date Smoking Tobacco: Never Smokeless Tobacco: Never Alcohol Use Standard Drinks/Week Comments Yes 0 (1 standard drink = 0.6 oz pur e alcohol) occ Comments Unknown Sex and Gender Information Value Date Recorded Sex Assigned at Not on file Legal Sex Female 5:58 AM SHOPPING INVESTIGATOR Gender Identity Not on file Sexual Orientation Not on file Last Filed Vital Signs Vital Sign Reading Time Taken Comments Blood Pressure 111/65 10/07/2010 2:55 AM SHOPPING INVESTIGATOR Pulse 59 10/07/2010 2:55 AM SHOPPING INVESTIGATOR Temperature 36.6 C (97.8 F) 10/07/2010 2:55 AM SHOPPING INVESTIGATOR Respiratory Rate 16 10/07/2010 2:55 AM SHOPPING INVESTIGATOR Oxygen Saturation 95% 10/07/2010 2:55 AM SHOPPING INVESTIGATOR Inhaled Oxygen Concentration - - Weight 78.5 kg (173 lb) 09/29/2010 1:59 PM SHOPPING INVESTIGATOR Height 158.8 cm (5' 2.5) 09/29/2010 1:59 PM SHOPPING INVESTIGATOR Body Mass Index 31.14 09/29/2010 1:59 PM SHOPPING INVESTIGATOR Plan of Treatment Health Maintenance Due Date Last Done Comments DTAP/TDAP/TD VACCINES (1 - Tdap) 1981 HPV/Cotest (21-29) 1983 CERVICAL CANCER SCREENING 1992 HPV/Cotest (30-65) 1992 PAP SMEAR 1992 BREAST CANCER SCREENING 2002 COLORECTAL SCREENING 2007 Colorectal Cancer Screening 2007 FIT-DNA Q 3 years 2007 FIT/FOBT Q 1 year 2007 Flex Sig/CT Colonography Q 5 years 2007 ZOSTER VACCINE (1 of 2) 2012 INFLUENZA VACCINE (#1) 2025 RSV VACCINE (60+ or ) (1 - 1-dose 75+ series) 2037 Insurance Advance Directives For more information, please contact: [phone] * Full Code (Latest Code Status on File) Date Activated Date Inactivated Comments 10/06/2010 2:35 PM 10/07/2010 8:53 AM * Full Code Date Activated Date Inactivated Comments 10/06/2010 9:33 AM 10/06/2010 2:35 PM Care Teams Flight Operations Coordinator Relationship Specialty Start Date End [facility] [address] [place] [address] PCP - General 09/15/10
--- OUTSIDE RECORDS SUMMARY | 2025-06-16 10:13 | XMS_ITS | Clinical Summary ---
Author Organization [facility] Address [address] [place] [address] Care Team Providers Care Tree Sapper Name Role Phone Joel Robin MD Primary Care Provider Referral, Self Unavailable Unavailable Allergies Active Allergy Reactions Criticality Noted Date Comments Antibiotic Cream Unknown High 06/24/2015 Codeine Nausea & Vomiting High 11/07/2012 Nausea and out of sorts Esomeprazole Anaphylaxis High 12/01/2017 Latex Rash High 08/22/2012 Vfxykjpl-Jqldvzjodp-Qarv myxin Itching Low 12/01/2017 Sertraline Dizziness Medium 08/22/2012 Sulfamethoxazole-Trimeth oprim Rash Medium 03/30/2020 Tree Nut Unknown High 06/24/2015 Medications aspirin-calcium carbonate 81 mg-300 mg calcium(777 mg) tablet Take 81 mg by mouth. Active atorvastatin (LIPITOR) 40 mg tablet Take 40 mg by mouth daily. 1 8 Active azithromycin (ZITHROMAX) 250 mg tablet TAKE 2 TABLETS ON DAY 1 THEN 1 TABLET DAILY THEREAFTER TILL ALL TAKEN [address] (VOLTAREN) 75 mg EC tablet Take 75 mg by mouth. 5 Active ibuprofen (ADVIL,MOTRIN) 800 mg tablet Take 800 mg by mouth every 6 hours. Active ranitidine (ZANTAC) 150 mg capsule Take 150 mg by mouth. Active simvastatin (ZOCOR) 20 mg tablet Take 40 mg by mouth. Active sulfacetamide (BLEPH-10) 10 % ophthalmic solution INSTILL THREE DROPS INTO RIGHT EAR TWICE DAILY 0 8 Active cholecalciferol (VITAMIN D-3) 2,000 unit capsule Take 2,000 Units by mouth. Active HYDROcodone-aceta minophen (NORCO) 5-325 mg per tabletIndications :Pain Take 1 tablet by mouth every 6 (six) hours as needed for pain. 25 tablet 8 Active ofloxacin (FLOXIN) 0.3 % otic solution Administer 5 drops into the right ear daily. 1 Bottle 3 8 Active AFLURIA QUAD 3811-2214, PF, 60 mcg/0.5 mL syringe ADM 0.5ML IM UTD 0 8 Active albuterol HFA (PROAIR HFA) 90 mcg/actuation inhaler ProAir HFA 90 mcg/actuation aerosol inhaler INHALE 2 PUFFS 4 TIMES A DAY NEEDED FOR SHORTNESS OF BREATH Active aspirin (ASPIRIN LOW DOSE) 81 mg enteric coated tablet daily Active LORazepam (ATIVAN) 0.5 mg tablet every 12 hours Activ e montelukast (SINGULAIR) 10 mg tablet daily Active multivitamin tablet Take 1 tablet by mouth daily Active triamcinolone (KENALOG) 0.1 % cream APPLY TO AFFECTED AREA 2 4 TIMES DAILY UNTIL CLEAR 0 9 Active influenza quadrivalent 8436-6927 (Flucelvax Quad 1585-8636, PF,) 60 mcg (15 mcg x 4)/0.5 mL syringe Flucelvax Quad 6067-3400 (PF) 60 mcg (15 mcg x 4)/0.5 mL IM syringe ADM 0.5ML IM UTD Active metoprolol XL (TOPROL-XL) 50 mg extended release tablet Take 50 mg by mouth daily 2 Active lisinopriL (PRINIVIL,ZESTRIL ) 40 mg tablet Take 40 mg by mouth daily 1 Active Active Problems Problem Noted Date Diagnosed Date Prediabetes 2020 Menopausal and postmenopausal disorder 9 Cyst of thyroid 06/10/2019 Goiter 06/10/2019 Disorder of skin 06/10/2019 Dysphagia 06/10/2019 Encounter for screening colonoscopy 06/10/2019 Female stress incontinence 06/10/2019 Herpes zoster 06/10/2019 Hyperlipidemia 06/10/2019 Irritable bowel syndrome 06/10/2019 Multiple joint pain 06/10/2019 Obesity 06/10/2019 Osteoarthritis 06/10/2019 Uterine leiomyoma 06/10/2019 Conductive hearing loss of r ight ear with unrestricted hearing of left ear 08/12/2018 Chronic atticoantral suppurative otitis media, r ight ear 08/12/2018 Impaired glucose tolerance 10/25/2017 Cervicalgia 05/27/2013 Arthrodesis status 11/22/2012 Fusion of spine of cervical region 11/07/2012 Cervical spondylosis without myelopathy 08/22/20 12 Disease of spinal cord 08/22/2012 Overview (04/09/2018): Overview: Surgical History Surgery Date Site/Laterality Comments SINUS SURGERY EAR SURGERY LYMPH NODE DISSECTION Medical History Medical History Date Comments Allergic rhinitis Asthma Anxiety Family History Medical History Relation Name Comments Cancer Sister Relation Name Status Comments Sister Social History Tobacco Use Types Packs/Day Years Used Date Smoking Tobacco: Never Smokeless Tobacco: Never Personal Safety Answer Date Recorded Getting School Help Needed Not on file 11/22 Comments Unknown Sex and Gender Information Value Date Recorded Sex Assigned at Not on file 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 Gender Identity Not on file Sexual Orientation Not on file Obstetrics History Plan of Treatment Health Maintenance Due Date Last Done Comments Breast Cancer Screening-Mammogram 1962 Cervical Cancer Screening 1962 Colon Cancer Screening-Colonoscopy 1962 Depression Screening 1962 Hepatitis C Screening 1962 DTaP/Tdap/Td Vaccine (1 - Tdap) 1973 Hepatitis B Screening 1980 Regular Well Visit/Exam 18-64 1980 Zoster Vaccine (1 of 2) 2012 Influenza Vaccine (#1) 2025 9, 07/14/2018, 06/28/2016, Additional history exists Pneumococcal vaccine <65 Aged Out No longer eligible based on patient's age to complete this topic Insurance [employer] PPO POS Care Teams Tree Sapper Relationship Specialty Start Date End Date Joel Robin MD PCP - General Internal Medicine 04/09/18 Referral, Self Referring Physician Otolaryngology 06/10/19
--- OUTSIDE RECORDS SUMMARY | 2025-06-16 10:14 | XMS_ITS | Clinical Summary ---
Author Organization [facility] Care Team Providers Care Near East Archeology Professor Name Role Phone Unavailable Primary Care Provider Unavailabl e Social History Tobacco Use Types Packs/Day Years Used Date Smoking Tobacco: Never Assessed Comments Unknown Sex and Gender Information Value Date Recorded Sex Assigned at Not on file Legal Sex Female 10:21 AM CDT Gender Identity Not on file Sexual Orientation Not on file Plan of Treatment Health Maintenance Due Date Last Done Comments Hepatitis C Virus (HCV) Screening 1962 TdaP Immunization 1962 Pap Smear 1983 Cervical Cancer Screening (CCS) 1992 HPV/Cotest 1992 Cologuard 2007 Colonoscopy 2007 Colorectal Cancer Screening 2007 Immunochemical Fecal Occult Blood 2007 Pneumococcal Immunization (50+ years) (1 of 1 - PCV) 2012 Zoster Immunization (1 of 2) 2012 Influenza Immunization (#1) 05/11/2025/04/2019, 07/14/2018, 06/28/2016, Additional history exists SARS-COV-2 Immunization ( season) 2025 11/16/2020, 10/19/2020 Respiratory Syncytial Virus (RSV) Immunization (Adult) (1 - 1-dose 75+ series) 2037 Hepatitis B Immunization Aged Out No longer eligible based on patient's age to complete this topic Human Papillomavirus (HPV) Immunization Aged Out No longer eligible based on patient's age to complete this topic Meningococcal Immunization (ACWY) Aged Out No longer eligible based on patient's age to complete this topic Rotavirus Immunization Aged Out No lo nger eligible based on patient's age to complete this topic
--- OUTSIDE RECORDS SUMMARY | 2025-06-16 10:14 | XMS_ITS | Clinical Summary ---
Author Organization [facility] [employer] Address [address] [place] [address] Care Team Providers Care Saute Chef Name Role Phone Joel Robin MD Primary Care Provider [phone] Source Comments [facility] [employer],non-owned Affiliates and Associated Physician Practices is amultiple site organization consisting of ambulatory clinics and hospital sitesin [place], [place], [place] and [place]. This disclosure is being madepursuant to the Care Everywhere program and may not contain all information available regarding this patient. Last updated 18.[facility] [employer] Allergies Active Allergy Reactions Criticality Noted Date Comments Dyrcyfqc-Vsjimivqtt-Jzienqo in Itching 12/01/2017 Codeine High 11/07/2012 Nausea and out of sorts Latex High 08/22/2012 Esomeprazole Anaphylaxis High 12/01/2017 Sertraline Dizziness Medium 08/22/2012 Medications * Be aware that medications may not be up to date on this document. Alwaysverify current medications with the patient. simvastatin (ZOCOR) 20 MG tablet Take 40 mg by mouth at bedtime Active ranitidine (ZANTAC) 150 MG capsule Take 150 mg by mouth 2 times daily. Active ibuprofen (MOTRIN) 800 MG tablet Take 800 mg by mouth every 6 hours as needed. Active Vitamin D3 (CHOLECALCIFERO L) 2000 UNITS CAPS capsule Take 2,000 Units by mouth once daily. Active aspirin 81 MG tablet Take 81 mg by mouth once daily. Active diclofenac sodium EC (VOLTAREN) 75 MG tablet Take 1 Tab by mouth 2 times daily 60 Tab 11 03/15/2015 Active Active Problems Problem Noted Date Diagnosed Date Cervicalgia 05/27/2013 Arthrodesis status 11/22/2012 Fusion of spine of cervical region 11/07/2012 Cervical spondylosis without myelopathy 08/22/20 Disease of spinal cord 08/22/2012 Overview (06/10/2015): Social History Tobacco Use Types Packs/Day Years Used Date Smoking Tobacco: Never Smokeless Tobacco: Never Alcohol Use Standard Drinks/Week Comments Yes 0 (1 standard drink = 0.6 oz pur e alcohol) Comments No Sex and Gender Information Value Date Recorded Sex Assigned at Not on file 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 Gender Identity Not on file Sexual Orientation Not on file Last Filed Vital Signs Vital Sign Reading Time Taken Comments Blood Pressure 136/80 12/01/2017 3:50 PM CDT Pulse 82 12/01/2017 3:50 PM CDT Temperature 36.7 C (98 F) 12/01/2017 3:50 PM CDT Respiratory Rate 14 12/01/2017 3:50 PM CDT Oxygen Saturation 98% 12/01/2017 3:50 PM CDT Inhaled Oxygen Concentration - - Weight 76.7 kg (169 lb) 12/01/2017 3:50 PM CDT Height 157.5 cm (5' 2) 12/01/2017 3:50 PM CDT Body Mass Index 30.91 12/01/2017 3:50 PM CDT Plan of Treatment Health Maintenance Due Date Last Done Comments COLOGUARD (AGES 45-75) - COL ON CA SCREENING 1962 COLON MONITORING 1962 COLONOSCOPY - COLON CA SCREENING 1962 CT COLONOGRAPHY - COLON CA SCREENING 1962 Colorectal Cancer Screening 1962 FIT - COLON CA SCREENING 1962 FLEX SIG - COLON CA SCREENING 1962 MAMMOGRAM 1962 HIV SCREENING 1977 HEPATITIS C SCREENING 03/12/1980 DTAP/TDAP/TD VACCINES (1 - Tdap) 1981 PNEUMOCOCCAL VACCINE 50+ (1 of 1 - PCV) 2012 ZOSTER VACCINE (1 of 2) 2012 SCREENING FOR DIABETES 12/01/2017 DEPRESSION SCREENING 09/10/2024 COVID-19 VACCINE (1 - 2023-2 5 season) 2025 INFLUENZA VACCINE (#1) 2025 Respiratory Syncytial Virus (RSV) Vaccine Pt: or over 60 yrs (1 - 1-dose 75+ series) 2037 HEPATITIS B VACCINE Aged Out No longe r eligible based on patient's age to complete this topic HIB VACCINE Aged Out No longer eligi ble based on patient's age to complete this topic HPV VACCINE Aged Out No longer eligi ble based on patient's age to complete this topic MENINGOCOCCAL (Group B) VACC INE SHARED DECISION-MAKING Aged Out No longer eligibl e based on patient's age to complete this topic MENINGOCOCCAL GROUPS A/C/Y/W VACCINE Aged Out No longer eligible b ased on patient's age to complete this topic Medical Devices Implanted Type Area Tire Setter Device Identifier Shelf Expiration Date Model / Serial / Lot [id number] - [id number] Implanted:Qty : 1 on 11/07/2012 by Julio Moran MD at [facility] N/A: Spine Cervical 10/02/2015 [id number] / [id number] / Space Peek 6 X 16 X 14mm Implanted:Qty : 1 on 11/07/2012 by Julio Moran MD at [facility] Spine Cervical [employer] 03/21/2020 [id number] / / [id number] Description:implant placed i n cervical area C5-6 Space Peek 7 X 16 X 14mm Implanted:Qty : 1 on 11/07/2012 by Julio Moran MD at [facility] Spine Cervical [employer] 06/16/2018 [id number] / / [id number] Description:implant placed i n cevical C6-7 Additional Health Concerns Infection Onset Date Last Indicated 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
--- OUTSIDE RECORDS SUMMARY | 2025-06-16 10:14 | XMS_ITS | Patient Health Record ---
Author Organization [facility] Address [address] [facility] [address] [facility] [address] [place] [address] Care Team Providers Care Cable Systems Installer Name Role Phone Tomy Grimes Unavailable [phone] Reason For Referral No Information Medications Medication SIG (Take, Route, Frequency, Duration) Notes Start Date End Date Status Ergocalciferol 1.25 MG (98542 UT) 1 capsule Orally Once a week; Duration: 90 days Active Losartan Potassium 50 MG TAKE 1 TABLET B Y MOUTH DAILY; Duration: 90 Active Farxiga 10 MG TAKE 1 TABLET BY ELYSIA TH DAILY Orally daily; Duration: 90 days Active Social History Sex Assigned At : Social History Observation Description Sex Assigned At Female Problems Problem Type SNOMED Code ICD Code Onset Dates Problem Status W/U Status Risk Notes Problem Diabetic renal disease (251436062) Type 2 diabetes mellitus with diabetic chronic kidney disease (E11.22) Active confirmed Problem Hyperlipidemia (78584586) Hyperlipidemia, unspecified (E78.5) Active confirmed Problem Anxiety disorder (125894504) Anxiety disorder, unspecified (F41.9) Active confirmed Problem Essential hypertension (60568391) Essential (primary) hypertension (I10) Active confirmed Problem Renal osteodystrophy (96324473) Renal osteodystrophy (N25.0) Active confirmed Problem Secondary hyperparathyroidism of renal origin (23208411) Secondary hyperparathyroidism of renal origin (N25.81) Active confirmed Problem Chronic fatigue syndrome (disorder) (37495645) Chronic fatigue, unspecified (R53.82) Active confirmed Problem Chronic kidney disease stage 3A (disorder) (168309438) Chronic kidney disease, stage 3a (N18.31) Active confirmed Encounters Encounter Location Date Provider Diagnosis [facility] [address] [facility] [address] [place] [address] 06/20/2024 Tomy Grimes Chronic kidney disea se, stage 3a N18.31 ; Chronic kidney disease, stage 2 (mild) N18.2 ; Anxiety disorder, unspecified F41.9 ; Chronic fatigue, unspecified R53.82 ; Essential (primary) hypertension I10 and Hyperlipidemia, unspecified E78.5 [facility] [address] [place] [address] 10/10/2024 Tmoy Grimes Chronic kidney disea se, stage 3a N18.31 ; Anxiety disorder, unspecified F41.9 ; Chronic fatigue, unspecified R53.82 ; Essential (primary) hypertension I10 ; Hyperlipidemia, unspecified E78.5 ; Chronic kidney disease, stage 2 (mild) N18.2 ; Type 2 diabetes mellitus with diabetic chronic kidney disease E11.22 ; Renal osteodystrophy N25.0 ; Secondary hyperparathyroidism of renal origin N25.81 and Proteinuria, unspecified R80.9 [facility] [address] [place] [address] 01/16/2025 Tomy Grimes Chronic kidney disea se, stage 3a N18.31 ; Anxiety disorder, unspecified F41.9 ; Chronic fatigue, unspecified R53.82 ; Essential (primary) hypertension I10 ; Hyperlipidemia, unspecified E78.5 ; Type 2 diabetes mellitus with diabetic chronic kidney disease E11.22 ; Renal osteodystrophy N25.0 and Secondary hyperparathyroidism of renal origin N25.81 [facility] [address] [place] [address] 04/15/2025 Tomy Grimes Chronic kidney disea se, stage 3a N18.31 ; Anxiety disorder, unspecified F41.9 ; Chronic fatigue, unspecified R53.82 ; Essential (primary) hypertension I10 ; Hyperlipidemia, unspecified E78.5 ; Type 2 diabetes mellitus with diabetic chronic kidney disease E11.22 ; Renal osteodystrophy N25.0 and Secondary hyperparathyroidism of renal origin N25.81 [facility] [address] [address] 10/22/2024 Tomy Grimes [facility] [address] [place] [address] 12/29/2024 Tomy Grimes [facility] [address] [address] 05/04/2025 Tomy Grimes Assessments Encounter Date Diagnosis (ICD Code) Assessment Notes Treatment Notes Treatment Clinical Notes Section Notes 06/20/2024 Chronic kidney disea se, stage 2 (mild) (ICD-10 - N18.2) 10/10/2024 Anxiety disorder, unspecified (ICD-10 - F41.9) 06/20/2024 Chronic kidney disea se, stage 3a (ICD-10 - N18.31) 10/10/2024 Chronic kidney disea se, stage 3a (ICD-10 - N18.31) 01/16/2025 Chronic kidney disea se, stage 3a (ICD-10 - N18.31) 04/15/2025 Chronic kidney disea se, stage 3a (ICD-10 - N18.31) 04/15/2025 Anxiety disorder, unspecified (ICD-10 - F41.9) 01/16/2025 Anxiety disorder, unspecified (ICD-10 - F41.9) 10/10/2024 Chronic fatigue, unspecified (ICD-10 - R53.82) 06/20/2024 Anxiety disorder, unspecified (ICD-10 - F41.9) 06/20/2024 Chronic fatigue, unspecified (ICD-10 - R53.82) 10/10/2024 Essential (primary) hypertension (ICD-10 - I10) 01/16/2025 Chronic fatigue, unspecified (ICD-10 - R53.82) 04/15/2025 Chronic fatigue, unspecified (ICD-10 - R53.82) 04/15/2025 Essential (primary) hypertension (ICD-10 - I10) 01/16/2025 Essential (primary) hypertension (ICD-10 - I10) 06/20/2024 Essential (primary) hypertension (ICD-10 - I10) 10/10/2024 Hyperlipidemia, unspecified (ICD-10 - E78.5) 06/20/2024 Hyperlipidemia, unspecified (ICD-10 - E78.5) 01/16/2025 Hyperlipidemia, unspecified (ICD-10 - E78.5) 10/10/2024 Chronic kidney disea se, stage 2 (mild) (ICD-10 - N18.2) 04/15/2025 Hyperlipidemia, unspecified (ICD-10 - E78.5) 04/15/2025 Type 2 diabetes mellitus with diabetic chronic kidney disease (ICD-10 - E11.22) 01/16/2025 Type 2 diabetes mellitus with diabetic chronic kidney disease (ICD-10 - E11.22) 10/10/2024 Type 2 diabetes mellitus with diabetic chronic kidney disease (ICD-10 - E11.22) 10/10/2024 Renal osteodystrophy (ICD-10 - N25.0) 01/16/2025 Renal osteodystrophy (ICD-10 - N25.0) 04/15/2025 Renal osteodystrophy (ICD-10 - N25.0) 04/15/2025 Secondary hyperparathyroidism of renal origin (ICD-10 - N25.81) 01/16/2025 Secondary hyperparathyroidism of renal origin (ICD-10 - N25.81) 10/10/2024 Secondary hyperparathyroidism of renal origin (ICD-10 - N25.81) 10/10/2024 Proteinuria, unspecified (ICD-10 - R80.9) Plan Of Treatment No Information
== END 2025-06-16 09:40 | disposition home or self-care (01) ==
LOC: ANHAUDIO 09:39
PROVIDERS: PCP Internal Medicine; Visit Provider Otolaryngology
DX: H90.11 Conductive hearing loss, unilateral, right ear, with unrestricted hearing on the contralateral side (principal); H90.71 Mixed conductive and sensorineural hearing loss, unilateral, right ear, with unrestricted hearing on the contralateral side
CPT/HCPCS: 92557; 92567

== ENCOUNTER 2025-08-20 08:37 | Emergency (ER) | payer OTHER, SELFPAY ==
--- NOTE | ~2025-08-20 | XR_ITS ---
EXAMINATION: XR chest 2V DATE: 08/20/2025 09:36 INDICATION: One and a half weeks of cough TECHNIQUE: PA and lateral views of the chest were obtained. COMPARISON: Chest radiograph dated 05/28/19 FINDINGS: The lungs remain clear with no focal airspace opacities, pulmonary edema, pleural effusion or pneumothorax. The cardiomediastinal silhouette is normal. Mild thoracic levocurvature with moderate spondylosis. Bone graft cages for anterior spinal fusion at a couple levels at the lower cervical spine. IMPRESSION: 1. No acute cardiopulmonary disease. Reviewed, dictated and finalized at location A. 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
--- NOTE | 2025-08-20 08:45 | ED_ITS ---
HPI - URI/Sore Throat General Chief Complaint: Upper Respiratory Infection Stated Complaint: Congestion Time Seen by Provider: 08/20/25 08:40 Source: patient Mode of arrival: ambulatory Limitations: no limitations History of Present Illness HPI Narrative: Patient is a 65-year-old female who presents with cough, congestion and feeling wheezing for 1.5 weeks. Patient has used very little [id number] treatments. patient was seen by her accounting auditor yesterday and was given a Z- [place]o. Patient states she has not started it. Denies any fever, chills, nausea, vomiting, diarrhea. Related Data Home Medications ?Medication ?Instructions ?Recorded ?Confirmed ?Last Taken ?Type atorvastatin 40 mg tablet mg 03/15/25 05/27/25 Unknown History dapagliflozin propanediol 10 mg mg 03/15/25 05/27/25 U nknown History tablet (Farxiga) ergocalciferol (vitamin D2) 1,250 03/15/25 05/27/25 U nknown History mcg (50,000 unit) capsule losartan 50 mg tablet mg 03/15/25 05/27/25 Unknown History metoprolol succinate 50 mg mg PO 03/15/25 05/27/25 Unk nown History tablet,extended release 24 hr Allergies Allergy/AdvReac Type Severity Reaction Status Date / Time Penicillins Allergy Severe NAUSEA AND Verified 08/20/25 08:42 VOMITING esomeprazole Allergy Intermediate MOUTH AND Verified 08/20/25 08:42 THROAT SWELLING latex Allergy Mild SENSITIVE Verified 08/20/25 08:42 SERTRALINE HCL Allergy Severe CONFUSION Uncoded 05/27/25 13:54 Dust Allergy Intermediate CHEST Uncoded 05/27/25 13:54 CONSTRICTION AEROSELS Allergy Mild irritation Uncoded 05/27/25 13:54 CIGARETTE SMOKE Allergy Mild irritation Uncoded 05/27/25 13:54 CODEINE PHOS Allergy Mild CONFUSION Uncoded 05/27/25 13:54 BACITRACIN OINT Allergy Unknown Rash Uncoded 05/27/25 13:54 Review of Systems Review of Systems: All systems reviewed & are unremarkable except as noted in HPI and below Constitutional: Constitutional: Denies chills, Denies fatigue, Denies fev er(s), Denies headache(s), Denies malaise and Denies weakness Eyes: Eyes: Denies blurry vision, Denies itchy eyes and Denies loss of vision ENT: Denies otalgia, Denies headache(s), Reports nasal congestion, Denies sinus pain and Denies sore throat Cardiovascular: Cardiovascular: Denies chest pain, Denies irregular heart rhythm and Denies dyspnea Respiratory: Respiratory: Reports cough, Denies dyspnea and Reports wheezing Gastrointestinal: Gastrointestinal: Denies abdominal pain, Denies diarrhea, Denies nausea and Denies vomiting Musculoskeletal: Musculoskeletal: Denies back pain, Denies myalgias and Denies arthralgias Integumentary/Breasts: Skin/Breast: Denies pruritus and Denies rash Neurologic: Denies headache(s), Denies loss of vision and Denies weakness Psychiatric: Psychiatric: Reports no additional psychiatric complaints Endocrine: Endocrine: Denies fatigue Allergic/Immunologic: Allergic/Immunologic: Denies itchy eyes PMFSH Past Medical History Medical History HTN (hypertension) Social History Social History Smoking status: Never smoker Comments At time of signature, agree with nursing past medical, surgical, social and family history. There is no relevant family history pertinent to the presenting complaint. Exam Const: General: cooperative, healthy appearing, comfortable, no acute distress and well nourished Nutritional Appearance: well nourished Orientation/consciousness: patient oriented x3 Limitations: no limitations HENMT: Head: normal to inspection, normocephalic and atraumatic Ears: hearing grossly normal bilaterally, external ears normal, TM's normal bilaterally, EAC's normal and no periauricular adenopathy Face/Nose/Sinus: Normal external nose present, Abnormal mucous membranes and turbinates present erythematous bilateral and diffuse, normal facial exam, sinuses nontender and face symmetric Face and sinus: normal facial exam, sinuses nontender and face symmetric Mouth: Yes Normal oral and palatal mucosa present, Yes lip normal, Yes tongue normal, Yes Normal salivary glands and ducts present, Yes oropharynx normal and Yes moist mucous membranes Teeth and gingiva: dentition normal Throat: posterior oropharynx normal, tonsils normal and uvula midline Eyes: General: appearance normal, both eyes and all related structures Alignment and Position: alignment normal and position normal Periorbital: periorbital findings normal Eyelids: eyelids normal Pupils: Equal, round and reactive pupils present Neck: Neck: normal visual inspection, full ROM, no lymphadenopathy and supple Chest: Chest palpation & inspection: normal inspection of the chest and normal palpation of entire chest wall Resp: Effort & Inspection: normal respiratory effort and able to speak in complete sentences Auscultation: clear to auscultation bilaterally, no crackles, no rales, no rhonchi and no wheezes Cardio: Rate: regular rate Rhythm: regular rhythm Heart sounds: S1 normal heart sound present and S2 normal heart sound present GI: Inspection: normal to inspection Skin: General skin exam: normal color and no rashes or lesions noted Neuro: General: patient oriented x3 and moves all extremities Cranial nerves: Yes Equal, round and reactive pupils present Speech: normal speech Gait exam (Neuro): Normal gait present Extrem: General: normal to inspection, full ROM and no edema Psych: Appearance: grossly normal and well kempt Mental Status: mental status grossly normal Speech and movement: Normal speech and movement present Affect: normal affect Attitude: cooperative Thought process: Normal thought process present Course Course Emergency Course: Patient is aware of diagnosis, understands and agrees to treatment plan. Anticipatory guidance given. Patient agrees to follow-up as directed and is aware of reasons to seek care at the emergency department. Portions of this record may have been created with voice recognition software Level of Care: Express Care Visit Vital Signs Vital signs: Vital Signs Temperature 36.5 C 08/20/25 08:50 Pulse Rate 77 08/20/25 08:50 Respiratory Rate 20 08/20/25 08:50 Blood Pressure 176/83 H 08/20/25 08:50 Pulse Oximetry 100 08/20/25 08:50 Oxygen Delivery Room Air 08/20/25 08:50 Temperature 36.5 C 08/20/25 08:50 Pulse Rate 77 08/20/25 08:50 Respiratory Rate 20 08/20/25 08:50 Blood Pressure 176/83 H 08/20/25 08:50 Pulse Oximetry 100 08/20/25 08:50 Oxygen Delivery Room Air 08/20/25 08:50 [facility] Narrative Medical decision making narrative: patient has azithromycin. Will add Tessalon Perles and albuterol inhaler. Chest x-ray was negative Pt well hydrated appearing, in no respiratory distress, hemodynamically stable. Recommend supportive care. The patient is stable at time of discharge the clinical impression was discussed and the patient was given the opportunity to ask questions, which were addressed as completely as possible given the information available at present. Anticipatory guidance and return to care precautions were discussed and the importance of primary care follow-up was stressed and encouraged. The patient voiced understanding of the plan, indications to return, and the need for follow-up. Exam findings show no acute concerns or changes Patient is appropriate for outpatient treatment and follow-up. Differential Diagnosis Differential Diagnosis: Differential diagnosis considered: [place] virus, strep pharyngitis, allergic rhinitis, upper respiratory tract infection, sinusitis, rhinosinusitis, nasopharyngitis. viral pharyngitis, otitis media, otitis externa, otitis effusion, foreign body, cerumen impaction, viral syndrome, and influenza. Medical Records I have reviewed the following patient records and this information was taken into consideration when formulating the assessment and plan.: previous clinic visits Imaging Data Radiologist's impression: EXAMINATION: XR chest 2V DATE: 08/20/2025 09:36 INDICATION: One and a half weeks of cough TECHNIQUE: PA and lateral views of the chest were obtained. COMPARISON: Chest radiograph dated 05/28/19 FINDINGS: The lungs remain clear with no focal airspace opacities, pulmonary edema, pleural effusion or pneumothorax. The cardiomediastinal silhouette is normal. Mild thoracic levocurvature with moderate spondylosis. Bone graft cages for anterior spinal fusion at a couple levels at the lower cervical spine. IMPRESSION: 1. No acute cardiopulmonary disease. Reviewed, dictated and finalized at location A. 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 Take your antibiotic that you were previously given as prescribed. Use Tessalon Perles as needed for cough. Use inhaler with spacer as needed. Other symptomatic treatments include: -Alternate Tylenol and Motrin per package directions for fever or pain: Tylenol 650-1000mg by mouth every 4-6 hours. Do not exceed 4000mg in 24 hours. Advil (Ibuprofen) 600 mg by mouth every 6 hours. Do not exceed 2400mg in 24 hours. 8 AM: Tylenol 11 AM: Ibuprofen 2 PM: Tylenol 5 PM: Ibuprofen 8 PM: Tylenol 11 PM: Ibuprofen 2 AM: Tylenol 5 AM: Ibuprofen -Antihistamine medication such as Benadryl at night and Zyrtec/Claritin/Diya during the day can help improve symptoms. -Use Flonase twice a day for 5 days then daily to help reduce the inflammation and dry up your sinuses. -You can also use Sudafed or Mucinex. Be sure to drink plenty of water with these medications at least 8 ounces with every dose and it is important to drink 8 to 10 glasses of water per day. Water is a natural decongestant -Eat and drink things that are easy to swallow, like tea or soup, or popsicles. -Oral rinses such as: Salt water gargles and/or may use topical anesthetic (eg. Chloraseptic spray) or lozenges to relieve dryness or throat pain). -Frequent hand washing or hand ripsawyer is one of the best ways to prevent spread of infection. -Using a vaporizer or humidifier at night will also help thin secretions and help with coughing up phlegm. Call your Primary Care Doctor and make a follow-up appointment in 3 days. If your cough worsens, you develop a fever greater than 103, you develop shaking chills, a fast heartbeat, trouble breathing and/or feel you are are breathing much faster than usual, call your Primary Care Doctor or go to the ER. Your blood pressure was elevated above 120/80 today at Urgent Care. This puts you above the threshold for follow up visit with a primary care provider. High blood pressure does not usually cause any symptoms, however it may lead to kidney failure, stroke, heart disease just to name a few if untreated . Many people are anxious when seeing a provider or nurse. As a result, you are not diagnosed with hypertension at this time unless your blood pressure is persistently high at two office visits at least one week apart. Some things that can help lower blood pressure are lifestyle modifications, such as light exercise, decreased salt in diet, and weight loss. It is important to follow up with a PCP about this within 1 week. Patient Language: Yoruba Prescriptions: New benzonatate 100 mg capsule 100 mg PO BID PRN (Reason: cough) Qty: 14 0RF albuterol sulfate 90 mcg/actuation HFA aerosol inhaler 2 puff inhalation QID PRN (Reason: shortness of breath or wheezing) Qty: 6.7 0RF (DME) Aerochamber MV Spacer See Rx Instructions .Route Qty: 1 0RF Rx Instructions: As directed No Action losartan 50 mg tablet atorvastatin 40 mg tablet metoprolol succinate 50 mg tablet extended release 24 hr PO ergocalciferol (vitamin D2) 1,250 mcg (50,000 unit) capsule dapagliflozin propanediol [Farxiga] 10 mg tablet Follow-up/Referrals: Lobito,Joel Moreno MD [Primary Care Provider, Unknown] - 3 Days Stand Alone Forms: Work/School Release IP Time of Disposition: 09:50
[2025-08-20 08:50] VITALS: BP 176/83; PULSE 77; RESP 20; TEMP 36.5; O2SAT 100
== END 2025-08-20 10:00 | disposition home or self-care (01) ==
PROVIDERS: Emergency Provider Nurse Practitioner Family; PCP Internal Medicine
DX: J06.9 Acute upper respiratory infection, unspecified (principal); I10 Essential (primary) hypertension
CPT/HCPCS: 71046; 99213; G0463